=== PATIENT | female | born 1965 | race African-American/Black ===

== ENCOUNTER 2017-04-01 12:36 | Inpatient (IN) | payer OTHER ==
[2017-04-01 14:13] VITALS: BMI 28.1
[2017-04-01] MEDS ORDERED: ACETAMINOPHEN 325 MG TABLET (FP) PO PRN (16:35)
[2017-04-01] MEDS ORDERED: MAG HYDROX/AL HYDROX/SIMETH 30 ML UNIT-DOSE CUP PO PRN (16:35)
[2017-04-01] MEDS ORDERED: P-EPHED 60MG/TRIPROLIDI 2.5MG TABLET PO PRN (16:35)
[2017-04-01] MEDS ORDERED: IBUPROFEN 400 MG TABLET (FP) PO PRN (16:35)
[2017-04-01] MEDS ORDERED: guaiFENesin/D-METHORPHAN HB 10 ML UNIT-DOSE CUPS PO PRN (16:35)
[2017-04-01] MEDS ORDERED: LOPERAMIDE HCL 2 MG CAPSULE PO PRN (16:35)
[2017-04-01] MEDS ORDERED: chlordiazePOXIDE HCL 25 MG CAPSULE PO PRN (16:35)
[2017-04-01] MEDS ORDERED: MENTHOL/PHENOL 1 EACH UD MM PRN (16:35)
[2017-04-01] MEDS ORDERED: hydrOXYzine PAMOATE 50 MG CAPSULE (FP) PO PRN (16:35)
[2017-04-01] MEDS ORDERED: NICOTINE POLACRILEX 4 MG GUM BC PRN (16:35)
[2017-04-01] MEDS ORDERED: MAGNESIUM CITRATE 300 ML BOTTLE PO PRN (16:35)
[2017-04-01] MEDS ORDERED: MAGNESIUM HYDROX 2400MG/30ML ORAL SUSPENSION 30 ML CUP PO PRN (16:35)
--- NOTE | 2017-04-01 16:35 | HP ---
CIWA Score - CIWA Score Nausea/Vomitin-Mild Nausea/No Vomiting Muscle Tremors: 4-Moderate,w/Arms Extend Anxiety: 4-Mod. Anxious/Guarded Agitation: 4-Moderately Restless Paroxysmal Sweats: 1-Minimal Palms Moist Orientation: 1-Uncertain about Date Tacttile Disturbances: 0-None Auditory Disturbances: 0-None Visual Disturbances: 0-None Headache: 0-None Present CIWA-Ar Total Score: 15 Admission ROS S - HPI Chief Complaint: withdrawal sx Allergies/Adverse Reactions: Allergies Allergy/AdvReac Type Severity Reaction Status Date / Time No Known Drug Allergies Allergy Verified 04/01/17 15:56 veal Allergy Severe Hives Uncoded 04/01/17 15:56 History of Present Illness: 51 years old female with long history of alcohol nicotine dependence denies medical issue has depression is admitted to detox Exam Limitations: No Limitations - Ebola screening Have you traveled outside of the country in the last 21 days: No Have you had contact with anyone from an Ebola affected area: No Have you been sick,other than usual withdrawal symptoms: No Do you have a fever: No - Review of Systems Constitutional: Chills, Changes in sleep, Weight Stable EENT: reports: No Symptoms Reported, Dental Problems (upper and lower dentures) Respiratory: reports: No Symptoms reported Cardiac: reports: No Symptoms Reported GI: reports: Nausea, Poor Fluid Intake, Abdominal cramping : reports: No Symptoms Reported Musculoskeletal: reports: No Symptoms Reported Integumentary: reports: No Symptoms Reported Neuro: reports: Tremors Endocrine: reports: No Symptoms Reported Hematology: reports: No Symptoms Reported Psychiatric: reports: Judgement Intact, Depressed Other Systems: Reviewed and Negative Patient History - Patient Medical History Hx Anemia: No Hx Asthma: No Hx Chronic Obstructive Pulmonary Disease (COPD): No Hx Cancer: No Hx Cardiac Disorders: No Hx Congestive Heart Failure: No Hx Hypertension: No Hx Hypercholesterolemia: No Hx Pacemaker: No HX Cerebrovascular Accident: No Hx Seizures: No Hx Dementia: No Hx Diabetes: No Hx Gastrointestinal Disorders: No Hx Liver Disease: No Hx Genitourinary Disorders: No Hx Sexually Transmitted Disorders: No Hx Renal Disease (ESRD): No Hx Thyroid Disease: No Hx Human Immunodeficiency Virus (HIV): No Hx Hepatitis C: No Hx Depression: Yes Hx Suicide Attempt: No Hx Bipolar Disorder: No Hx Schizophrenia: No - Patient Surgical History Past Surgical History: No - PPD History Previous Implant?: Yes Documented Results: Negative w/proof Implanted On Prior [facility] Admission?: No PPD to be Administered?: Yes - Reproductive History Patient is a Female of Child Bearing Age (11 -55 yrs old): Yes Last Menstrual Period: 04/02/15 Patient : No - Smoking Cessation Smoking history: Current every day smoker Have you smoked in the past 12 months: Yes Aproximately how many cigarettes per day: 20 Cigars Per Day: 0 Hx Chewing Tobacco Use: No Initiated information on smoking cessation: Yes 'Breaking Loose' booklet given: 04/01/17 - Substance & Tx. History Hx Alcohol Use: Yes Hx Substance Use: No Substance Use Type: Alcohol - Substances Abused Crack Route: Smoking Frequency: Daily Amount used: $80 Age of first use: 22 Date of Last Use: 03/28/17 Alcohol Route: Oral Frequency: Daily Amount used: 12pk beer 40pz Age of first use: 22 Date of Last Use: 03/31/17 Family Disease History - Family Disease History Family Disease History: CA: Father (), Mother (), Other: Mother Admission Physical Exam S - Vital Signs Vital Signs: Vital Signs - 24 hr 04/01/17 14:10 Temperature 97.8 F Pulse Rate 69 Respiratory 20 Rate Blood Pressure 129/82 - Physical General Appearance: Yes: Nourished, Appropriately Dressed, Alcohol on Breath, Tremorous, Irritable, Sweating, Anxious HEENTM: Yes: Hearing grossly Normal, Normal ENT Inspection, Normocephalic, Normal Voice Respiratory: Yes: Chest Non-Tender, Lungs Clear, Normal Breath Sounds, No Respiratory Distress, No Accessory Muscle Use Neck: Yes: Supple, Trachea in good position Breast: Yes: Breasts Symetrical Cardiology: Yes: Regular Rhythm, Regular Rate, S1, S2 Abdominal: Yes: Normal Bowel Sounds, Non Tender, Soft Genitourinary: Yes: Within Normal Limits Back: Yes: Normal Inspection Musculoskeletal: Yes: full range of Motion, Gait Steady Extremities: Yes: Normal Inspection, Normal Range of Motion, Non-Tender, Tremors Neurological: Yes: Alert, Motor Strength 5/5, Normal Response, Depressed Affect Integumentary: Yes: Warm Lymphatic: Yes: Within Normal Limits - Diagnostic (1) Alcohol dependence with uncomplicated withdrawal Current Visit: Yes Status: Acute (2) Nicotine dependence Current Visit: Yes Status: Acute Qualifiers: Nicotine product type: cigarettes Substance use status: in withdrawal Qualified Code(s): F17.213 - Nicotine dependence, cigarettes, with withdrawal (3) Depression (emotion) Current Visit: Yes Status: Suspected Qualifiers: Depression Type: dysthymia Qualified Code(s): F34.1 - Dysthymic disorder Cleared for Admission [facility] - Detox or Rehab [facility] Level of Care: Medically Managed Detox Regimen/Protocol: Librium [facility] Breath Alcohol Content Breath Alcohol Content: 0.014 Urine Pregancy Test - Result Urine Test Results: Negative- NO Line Present Urine Drug Screen - Results Drug Screen Negative: Yes
[2017-04-01] MEDS: diphenhydrAMINE HCL 50 MG CAPSULE PO PRN (22:47)
[2017-04-01] MEDS: THIAMINE HCL 100 MG TABLET (FP) PO SCH (22:48)
[2017-04-01] MEDS: chlordiazePOXIDE HCL 25 MG CAPSULE PO SCH (22:48)
[2017-04-02] MEDS: chlordiazePOXIDE HCL 25 MG CAPSULE PO SCH ×4 (05:45→22:42)
[2017-04-02 10:43] LABS: MCH 29.6 pg (25.7-33.7); MCHC 31.9 g/dl (32.0-36.0); MEAN CELL VOLUME 92.7 fl (80-96); MEAN PLT VOLUME 9.3 fl (7.5-11.1); PLATELET COUNT 252 K/MM3 (134-434); RDW 14.1 % (11.6-15.6); WHITE BLOOD COUNT 5.1 K/mm3 (4.0-10.0)
[2017-04-02 10:55] LABS: ALBUMIN 3.9 g/dl (3.4-5.0); BILIRUBIN,TOTAL 0.3 mg/dL (0.2-1.0); CALCIUM 9.3 mg/dL (8.5-10.1); COCKROFT - GAULT 74.2985; CREATININE 1.2 mg/dL (0.55-1.02); TOT PROT 7.3 g/dl (6.4-8.2)
[2017-04-02] MEDS: PRENATAL VITAMINS W/ FOLIC ACID TABLET (FP) PO SCH (10:58)
[2017-04-02] MEDS: NICOTINE 21 MG/24 HOURS TOPICAL PATCH TD SCH (10:58)
--- NOTE | 2017-04-02 11:30 | PN ---
[facility] CIWA - CIWA Score Nausea/Vomitin-Mild Nausea/No Vomiting Muscle Tremors: 4-Moderate,w/Arms Extend Anxiety: 4-Mod. Anxious/Guarded Agitation: 4-Moderately Restless Paroxysmal Sweats: 3 Orientation: 0-Oriented Tacttile Disturbances: 0-None Auditory Disturbances: 0-None Visual Disturbances: 0-None Headache: 0-None Present CIWA-Ar Total Score: 16 [facility] Progress Note (SOAP) Subjective: Anxiety,tremors,sweating,interrupted sleep,restless Objective: 04/02/17 11:29 Vital Signs - 8 hr 04/02/17 04/02/17 03:30 07:00 Temperature 97.9 F Pulse Rate 61 Respiratory 18 18 Rate Blood Pressure 124/67 Laboratory Last Values WBC 5.1 K/mm3 (4.0-10.0) 04/02/17 06:00 RBC 4.50 M/mm3 (3.60-5.2) 04/02/17 06:00 Hgb 13.3 GM/dL (10.7-15.3) 04/02/17 06:00 Hct 41.7 % (32.4-45.2) 04/02/17 06:00 MCV 92.7 fl (80-96) 04/02/17 06:00 MCHC 31.9 g/dl (32.0-36.0) L 04/02/17 06:00 RDW 14.1 % (11.6-15.6) 04/02/17 06:00 Plt Count 252 K/MM3 (134-434) 04/02/17 06:00 MPV 9.3 fl (7.5-11.1) 04/02/17 06:00 Sodium 141 mmol/L (136-145) 04/02/17 06:00 Potassium 4.0 mmol/L (3.5-5.1) 04/02/17 06:00 Chloride 107 mmol/L (98-107) 04/02/17 06:00 Carbon Dioxide 24 mmol/L (21-32) 04/02/17 06:00 Anion Gap 10 (8-16) 04/02/17 06:00 BUN 17 mg/dL (7-18) 04/02/17 06:00 Creatinine 1.2 mg/dL (0.55-1.02) H 04/02/17 06:00 Creat Clearance w eGFR 47.55 (>60) 04/02/17 06:00 Random Glucose 90 mg/dL (74-106) 04/02/17 06:00 Calcium 9.3 mg/dL (8.5-10.1) 04/02/17 06:00 Total Bilirubin 0.3 mg/dL (0.2-1.0) 04/02/17 06:00 AST 22 U/L (15-37) 04/02/17 06:00 ALT 25 U/L (12-78) 04/02/17 06:00 Alkaline Phosphatase 92 U/L (45-117) 04/02/17 06:00 Total Protein 7.3 g/dl (6.4-8.2) 04/02/17 06:00 Albumin 3.9 g/dl (3.4-5.0) 04/02/17 06:00 labs noted Assessment: 04/02/17 11:30 Withdrawal sx. Plan: Continue detox
[2017-04-02 15:04] LABS: URINE APPEARANCE SLCLOUDY; URINE BILIRUBIN NEGATIVE (NEGATIVE); URINE BLOOD NEGATIVE (NEGATIVE); URINE COLOR LTYELLOW; URINE GLUCOSE (UA) NEGATIVE (NEGATIVE); URINE KETONE NEGATIVE (NEGATIVE); URINE LEUK ESTERASE NEGATIVE (NEGATIVE); URINE NITRITE NEGATIVE (NEGATIVE); URINE PROTEIN NEGATIVE (NEGATIVE); URINE UROBILINOGEN NEGATIVE E.U./dl (0.2-1.0)
--- NOTE | 2017-04-02 16:32 | CONSULT ---
[facility] Psychiatric Consult - Data Date of interview: 04/02/17 Admission source: [facility] Identifying data: First admission to [facility] for this 51 y/o AA female seeking detox treatment for alcohol and cocaine dependence.Patient is , a mother of one,domiciled,unemployed and reportedly deprived of any source of income. Substance Abuse History: - Smoking Cessation. Smoking history: Current every day smoker. Have you smoked in the past 12 months: Yes. Aproximately how many cigarettes per day: 20. Cigars Per Day: 0. Hx Chewing Tobacco Use: No. Initiated information on smoking cessation: Yes. 'Breaking Loose' booklet given : 04/01/17. - Substance & Tx. History. Hx Alcohol Use: Yes. Hx Substance Use : No. Substance Use Type: Alcohol. - Substances Abused. Crack. Route: Smoking. Frequency: Daily. Amount used: $80. Age of first use: 22. Date of Last Use: 03/28/17. Alcohol. Route: Oral. Frequency: Daily. Amount used: 12pk beer 40pz. Age of first use: 22. Date of Last Use: 03/31/17. Confirmed by the patient. Medical History: Patient endorses good general health. Psychiatric History: Patient denies. Physical/Sexual Abuse/Trauma History: Patient denies. Additional Comment: Drug Screen is negative.Noted. Mental Status Exam - Mental Status Exam Alert and Oriented to: Time, Place, Person Cognitive Function: Good Patient Appearance: Well Groomed Mood: Nervous, Withdrawn, Anxious Affect: Mood Congruent Patient Behavior: Fatigued, Cooperative Speech Pattern: Clear Voice Loudness: Normal Thought Process: Goal Oriented Thought Disorder: Not Present Hallucinations: Denies Suicidal Ideation: Denies Homicidal Ideation: Denies Insight/Judgement: Poor Sleep: Well Appetite: Good Muscle strength/Tone: Normal Gait/Station: Normal Psychiatric Findings - Problem List ([place] 1, 2,3) (1) Alcohol dependence with uncomplicated withdrawal Current Visit: Yes Status: Acute (2) Nicotine dependence Current Visit: Yes Status: Acute Qualifiers: Nicotine product type: cigarettes Substance use status: in withdrawal Qualified Code(s): F17.213 - Nicotine dependence, cigarettes, with withdrawal - Initial Treatment Plan Initial Treatment Plan: Psychoeducation.Detoxification in progress.Observation.
--- NOTE | 2017-04-02 19:24 | EKG ---
Test Reason : Blood Pressure : / mmHG Vent. Rate : 059 BPM Atrial Rate : 059 BPM P-R Int : 144 ms QRS Dur : 078 ms QT Int : 452 ms P-R-T Axes : 056 -10 051 degrees QTc Int : 447 ms SINUS BRADYCARDIA OTHERWISE NORMAL ECG NO PREVIOUS ECGS AVAILABLE Confirmed by DAWN ORTEGA, SOFIA ([id number]) on 04/02/2017 7:23:25 PM Referred By: Confirmed By:SOFIA SEYMOUR MD
[2017-04-02] MEDS: THIAMINE HCL 100 MG TABLET (FP) PO SCH (22:42)
[2017-04-02] MEDS: diphenhydrAMINE HCL 50 MG CAPSULE PO PRN (22:43)
[2017-04-03] MEDS: chlordiazePOXIDE HCL 25 MG CAPSULE PO SCH ×3 (06:20→17:52)
--- NOTE | 2017-04-03 10:31 | PN ---
S CIWA - CIWA Score Nausea/Vomitin-No Nausea/No Vomiting Muscle Tremors: 3 Anxiety: 2 Agitation: 2 Paroxysmal Sweats: 3 Orientation: 0-Oriented Tacttile Disturbances: 0-None Auditory Disturbances: 0-None Visual Disturbances: 0-None Headache: 0-None Present CIWA-Ar Total Score: 10 S Progress Note (SOAP) Subjective: Anxiety,tremors,sweating,interrupted sleep,restless Objective: 04/03/17 10:30 Vital Signs - 8 hr 04/03/17 04/03/17 04/03/17 03:30 06:00 10:00 Temperature 97.7 F 97.9 F Pulse Rate 64 70 Respiratory 18 18 16 Rate Blood Pressure 104/62 109/68 Laboratory Tests 04/01/17 04/02/17 04/02/17 09:03 06:00 06:00 WBC 5.1 RBC 4.50 Hgb 13.3 Hct 41.7 MCV 92.7 MCHC 31.9 L RDW 14.1 Plt Count 252 MPV 9.3 Sodium 141 Potassium 4.0 Chloride 107 Carbon Dioxide 24 Anion Gap 10 BUN 17 Creatinine 1.2 H Creat Clearance w eGFR 47.55 Random Glucose 90 Calcium 9.3 Total Bilirubin 0.3 AST 22 ALT 25 Alkaline Phosphatase 92 Total Protein 7.3 Albumin 3.9 Urine Color Ltyellow Urine Appearance Slcloudy Urine pH 5.0 Ur Specific [place] <= 1.005 Urine Protein Negative Urine Glucose (UA) Negative Urine Ketones Negative Urine Blood Negative Urine Nitrite Negative Urine Bilirubin Negative Urine Urobilinogen Negative Ur Leukocyte Esterase Negative labs noted Assessment: 04/03/17 10:30 Withdrawal sx. Plan: Continue detox
[2017-04-03] MEDS: PRENATAL VITAMINS W/ FOLIC ACID TABLET (FP) PO SCH (10:58)
[2017-04-03] MEDS: NICOTINE 21 MG/24 HOURS TOPICAL PATCH TD SCH (11:00)
[2017-04-03 11:14] LABS: URINE APPEARANCE CLEAR; URINE BILIRUBIN NEGATIVE (NEGATIVE); URINE BLOOD NEGATIVE (NEGATIVE); URINE COLOR STRAW; URINE GLUCOSE (UA) NEGATIVE (NEGATIVE); URINE KETONE NEGATIVE (NEGATIVE); URINE NITRITE NEGATIVE (NEGATIVE); URINE PROTEIN NEGATIVE (NEGATIVE); URINE UROBILINOGEN NEGATIVE E.U./dl (0.2-1.0)
[2017-04-03 11:34] LABS: URINE LEUK ESTERASE TRACE (NEGATIVE)
[2017-04-03 11:36] LABS: URINE WBC <1 /hpf (3-5)
[2017-04-03] MEDS: diphenhydrAMINE HCL 50 MG CAPSULE PO PRN (22:33)
[2017-04-03] MEDS: chlordiazePOXIDE 5 MG CAPSULE PO SCH (22:33)
[2017-04-03] MEDS: THIAMINE HCL 100 MG TABLET (FP) PO SCH (22:34)
[2017-04-04] MEDS: chlordiazePOXIDE 5 MG CAPSULE PO SCH ×3 (05:28→16:58)
[2017-04-04] MEDS: NICOTINE 21 MG/24 HOURS TOPICAL PATCH TD SCH (10:51)
[2017-04-04] MEDS: PRENATAL VITAMINS W/ FOLIC ACID TABLET (FP) PO SCH (10:51)
--- NOTE | 2017-04-04 12:48 | PN ---
[facility] Progress Note (SOAP) Subjective: little sweats i just hit my right alejandro on the bedside table. Objective: 04/04/17 12:43 Vital Signs Temperature 98.2 F 04/04/17 10:00 Pulse Rate 68 04/04/17 10:00 Respiratory Rate 20 04/04/17 10:00 Blood Pressure 117/71 04/04/17 10:00 O2 Sat by Pulse Oximetry (%) awake/alert ambulating no acute distress Assessment: 04/04/17 12:44 withdrawal sx Plan: leg observed, no skin breakdown no s/s of bruising noted no swelling to area. encouraged pt warm compress motrin/tylneol prn continue detox increase fluids d/c in am
[2017-04-04] MEDS: THIAMINE HCL 100 MG TABLET (FP) PO SCH (22:33)
[2017-04-04] MEDS: diphenhydrAMINE HCL 50 MG CAPSULE PO PRN (22:34)
[2017-04-04] MEDS: chlordiazePOXIDE HCL 10 MG CAPSULE PO SCH (22:36)
[2017-04-05] MEDS: chlordiazePOXIDE HCL 10 MG CAPSULE PO SCH (06:08)
[2017-04-05 06:41] VITALS: BP 106/67; PULSE 66; TEMP 97.7
--- NOTE | 2017-04-05 09:04 | DS ---
[facility] Detox Discharge Summary Admission Date: 04/01/17 Discharge Date: 04/05/17 - History Present History: Alcohol Dependence - Physical Exam Results Vital Signs: Vital Signs Temperature 97.7 F 04/05/17 06:40 Pulse Rate 66 04/05/17 06:40 Respiratory Rate 16 04/05/17 06:40 Blood Pressure 106/67 04/05/17 06:40 O2 Sat by Pulse Oximetry (%) - Treatment Hospital Course: Detox Protocol Followed, Detoxed Safely, Responded well, Discharged Condition Good, Rehab Referral Accepted - Medication Discharge Medications: Ambulatory Orders NK [No Known Home Medication] 04/01/17 - Diagnosis (1) Alcohol dependence with uncomplicated withdrawal Current Visit: Yes Status: Chronic (2) Nicotine dependence Current Visit: Yes Status: Chronic Qualifiers: Nicotine product type: cigarettes Substance use status: uncomplicated Qualified Code(s): F17.210 - Nicotine dependence, cigarettes, uncomplicated - AMA Did Patient Leave Against Medical Advice: No
== END 2017-04-05 08:45 | disposition home or self-care (01) | DRG 775 ==
LOC: YASAS 12:36 → Y6N 17:06
PROVIDERS: ADMIT Internal Medicine; ATTEND Internal Medicine
PROC: HZ2ZZZZ Detoxification Services for Substance Abuse Treatment (ICD-10-PCS; principal; 2017-04-05)
DX: F10.230 Alcohol dependence with withdrawal, uncomplicated (principal); F17.210 Nicotine dependence, cigarettes, uncomplicated; F34.1 Dysthymic disorder
CPT/HCPCS: 36415; 80053; 81003; 81015; 85027; 86593; 86780; 93005; 93010

== ENCOUNTER 2022-01-12 19:06 | Inpatient (IN) | payer BC ==
[2022-01-12] MEDS ORDERED: ONDANSETRON *ODT* 4 MG TABLET SL PRN (21:15)
[2022-01-12] MEDS ORDERED: LOPERAMIDE HCL 2 MG CAPSULE PO PRN (21:15)
[2022-01-12] MEDS ORDERED: BISMUTH SUBSALICYLATE 524 MG/30 ML PO PRN (21:15)
[2022-01-12] MEDS ORDERED: NICOTINE 10 MG CARTRIDGE (INHALER) IH PRN (21:15)
[2022-01-12] MEDS ORDERED: MAGNESIUM CITRATE 300 ML BOTTLE PO PRN (21:15)
[2022-01-12] MEDS ORDERED: METHOCARBAMOL 500 MG TABLET PO PRN (21:15)
[2022-01-12] MEDS ORDERED: hydrOXYzine PAMOATE 25 MG CAPSULE (FP) PO PRN (21:15)
[2022-01-12] MEDS ORDERED: ACETAMINOPHEN 325 MG TABLET (FP) PO PRN ×2 (21:15)
[2022-01-12] MEDS ORDERED: MAGNESIUM HYDROX 2400MG/30ML ORAL SUSPENSION 30 ML CUP PO PRN (21:15)
[2022-01-12] MEDS ORDERED: MENTHOL/PHENOL 1 EACH UD MM PRN (21:15)
[2022-01-12] MEDS ORDERED: IBUPROFEN 400 MG TABLET (FP) PO PRN (21:15)
[2022-01-12] MEDS ORDERED: MAG HYDROX/AL HYDROX/SIMETH 30 ML UNIT-DOSE CUP PO PRN (21:15)
[2022-01-12] MEDS ORDERED: NICOTINE POLACRILEX 2 MG GUM BUC PRN (21:15)
[2022-01-12 23:03] VITALS: BMI 24.0
[2022-01-13] MEDS: THIAMINE HCL 100 MG TABLET (FP) PO SCH ×2 (03:24→22:51)
[2022-01-13] MEDS: MELATONIN 5 MG TABLETS PO SCH ×2 (03:24→22:51)
[2022-01-13] MEDS: PRENATAL VITAMINS W/ FOLIC ACID TABLET (FP) PO SCH (10:49)
[2022-01-13 11:07] LABS: HEMOGLOBIN 12.8 GM/dL (10.7-15.3); MCH 29.2 pg (25.7-33.7); MCHC 32.1 g/dl (32.0-36.0); MEAN CELL VOLUME 91.2 fl (80-96); MEAN PLT VOLUME 7.9 fl (7.5-11.1); PLATELET COUNT 287 10^3/uL (134-434); RBC 4.38 M/mm3 (3.60-5.2); WHITE BLOOD COUNT 5.1 K/mm3 (4.0-10.0)
[2022-01-13 11:21] LABS: ALBUMIN 3.4 g/dl (3.4-5.0); BLOOD UREA NITROGEN 20.7 mg/dL (7-18)
[2022-01-13 11:24] LABS: CREATININE 0.9 mg/dL (0.55-1.3)
[2022-01-13 11:26] LABS: BILIRUBIN,TOTAL 0.7 mg/dL (0.2-1); TOT PROT 6.5 g/dl (6.4-8.2)
[2022-01-14] MEDS: PRENATAL VITAMINS W/ FOLIC ACID TABLET (FP) PO SCH (10:52)
[2022-01-14 11:04] VITALS: BP 122/74; PULSE 83; TEMP 97.2
[2022-01-14 11:10] LABS: SARS-CoV-2 NAA Not Detected (Not Detected)
== END 2022-01-14 11:00 | disposition home or self-care (01) | DRG 774 ==
LOC: YASAS 19:06 → Y6N 01-13 02:50
PROVIDERS: ADMIT Allergy & Immunology; ATTEND Allergy & Immunology
PROC: HZ2ZZZZ Detoxification Services for Substance Abuse Treatment (ICD-10-PCS; principal; 2022-01-13)
DX: F10.220 Alcohol dependence with intoxication, uncomplicated (principal); F14.20 Cocaine dependence, uncomplicated; F17.210 Nicotine dependence, cigarettes, uncomplicated; Z86.19 Personal history of other infectious and parasitic diseases
CPT/HCPCS: 36415; 80053; 81025; 82947; 85027; 86593; 86780; C9803; U0003; U0005